=== PATIENT | male | born 1985 | race Caucasian/White ===

== ENCOUNTER 2018-06-08 08:36 | Emergency (ER) | payer OTHER ==
--- NOTE | 2018-06-08 09:04 | C.PDOC ---
History Of Present Illness 32 yr old male w/ no ppmhx p/w fever, cough, mild headache and sore throat x2d. No neck stiffness or FND. No sudden TERESA worst of life. Pt notes diffuse body aches. No urinary complaints or rashes. No bug bites. No diarrhea or constipation. No abdominal pain, nausea or vomiting. No chest pain or sob. Pt notes that he did not get the flu shot. He is concerned about the flu. No other complaints. Time Seen by Provider: 06/08/18 09:02 Chief Complaint (Nursing): Flu-like Symptoms Past Medical History Vital Signs: Last Vital Signs Temp 102.2 F H 06/08/18 08:40 Pulse 104 H 06/08/18 08:40 Resp 20 06/08/18 08:40 BP 117/76 06/08/18 08:40 Pulse Ox 98 06/08/18 08:40 Family History: States: No Known Family Hx - Social History Hx Alcohol Use: No Hx Substance Use: No - Immunization History Hx Influenza Vaccination: No Review Of Systems Constitutional: Positive for: Fever, Chills, Sweats. Negative for: Weight loss Eyes: Negative for: Pain, Vision Change, Conjunctivae Inflammation, Eyelid Infl ammation, Redness ENT: Negative for: Ear Pain, Ear Discharge, Nose Pain, Nose Congestion, Mouth Pain, Mouth Swelling Cardiovascular: Negative for: Chest Pain, Palpitations, Orthopnea Respiratory: Negative for: Cough, Shortness of Breath, SOB with Excertion, Pleuritic Pain Gastrointestinal: Negative for: Nausea, Vomiting, Abdominal Pain, Constipation, Melena Genitourinary: Negative for: Dysuria, Frequency, Hematuria, Penile Discharge, Rash, Penile Pain Musculoskeletal: Negative for: Neck Pain, Shoulder Pain, Back Pain, Hand Pain Skin: Negative for: Rash, Lesions, Jaundice Neurological: Positive for: Headache (mild). Negative for: Weakness, Numbness, Incoordination, Confusion, Seizures, Altered Mental Status Psych: Negative for: Anxiety, Depression, Psychosis Physical Exam - Physical Exam Appears: Well, Non-toxic, No Acute Distress Skin: Normal Color, Warm Head: Atraumatic, Normacephalic Eye(s): bilateral: Normal Inspection, PERRL, EOMI Ear(s): Bilateral: Normal Nose: Normal Oral Mucosa: Moist Tongue: Normal Appearing Lips: Normal Appearing Gingiva: Normal Appearing Throat: Normal, No Erythema, No Exudate, No Drooling, No Mass Neck: Normal ROM, Supple, Other (no meningeal signs) Lymphatic: No Adenopathy (no anterior or posterior cervical adenopathy) Chest: Symmetrical, No Deformity Cardiovascular: Rhythm Regular Respiratory: Normal Breath Sounds, No Decreased Breath Sounds Gastrointestinal/Abdominal: Normal Exam Back: Normal Inspection, No CVA Tenderness Extremity: Bilateral: Atraumatic Neurological/Psych: Oriented x3, Normal Speech, Normal Cognition Gait: Steady ED Course And Treatment O2 Sat by Pulse Oximetry: 98 (RA) Pulse Ox Interpretation: Normal Medical Decision Making Medical Decision Making: Well appearing 32 yr old male w/ no pmhx p/w nasal congestion, sore throat and chills / body aches. Also w/ mild teresa. No meningeal signs. Mild cough non productive of phlegm. No FND, no recent sinus infection. No chest pain or sob. No abdominal pain. Likely flu vs viral syndrome. Unlikely mono: no posterior lymphadenopathy. Pending labs given tylenol for fever. PO fluids for tachy. Will reassess. 1050 Vitals improved Serology negative Likely Viral URI XRAY neg. No urinary complaints or abd pain on reassessment. No meningeal signs Pt notes improvement Clear for d/c home w/ f/u and return indications, pt agreeable Disposition - Disposition Disposition Time: 10:51 Condition: GOOD Instructions: Viral Upper Respiratory Infection, Adult (DC) Forms: [facility] ([place]) - Clinical Impression Clinical Impression: Viral URI
[2018-06-08 10:16] LABS: INFLUENZA A B NEGATIVE FOR FLU A/B (NEGATIVE)
[2018-06-08 10:35] VITALS: BP 115/72; PULSE 85; RESP 18; TEMP 99.2
[2018-06-08 10:52] VITALS: O2SAT 98
--- NOTE | 2018-06-08 10:56 | RAD ---
Date of service: 06/08/2018 HISTORY: cough COMPARISON: No prior. TECHNIQUE: Chest PA and lateral FINDINGS: LUNGS: No active pulmonary disease. PLEURA: No significant pleural effusion identified. No pneumothorax apparent. CARDIOVASCULAR: No aortic atherosclerotic calcification present. Normal cardiac size. No pulmonary vascular congestion. OSSEOUS STRUCTURES: No significant abnormalities. VISUALIZED UPPER ABDOMEN: Normal. OTHER FINDINGS: None. IMPRESSION: No active disease.
== END 2018-06-08 10:57 | disposition home or self-care (01) ==
LOC: C.ER 08:36
DX: J06.9 Acute upper respiratory infection, unspecified (principal)